=== PATIENT | male | born 1960 | race Caucasian/White ===

== ENCOUNTER → 2025-07-21 | Day surgery (SDC) | payer OTHER ==
--- NOTE | 2025-07-10 10:01 | RAD REPORT ---
EXAM: Chest Pa And Lat (2 Views) HISTORY: 65 years Male Pre-op pending knee meniscectomy COMPARISON: No prior exams FINDINGS: LUNGS/PLEURA: The lungs are clear. No pleural effusions or pneumothorax. No pulmonary edema. CARDIAC/MEDIASTINUM: The cardiac silhouette is within normal limits. UPPER ABDOMEN: No significant abnormality. BONES: No acute abnormality. LINES/TUBES/OTHER: N/A IMPRESSION: No evidence of acute cardiopulmonary disease.
[2025-07-10 10:14] LABS: Absolute Lymphocytes (CBC) 2.1 K/uL (0.7-4.9); Hematocrit 39.1 % (39.6-49.0); Hemoglobin 13.6 g/dL (13.6-17.9); MCH 30.3 pg (27.0-35.0); MCHC 34.6 g/dL (32.0-36.0); MCV 87.5 fL (80-100); MPV 9.9 fL (7.6-11.3); Nucleated RBC Absolute Count 0.0 (0-0); Nucleated Red Blood Cells % 0.2 % (0-0); RBC Red Blood Cell Count 4.47 M/uL (4.33-5.43); White Blood Count 6.10 thou/uL (4.3-10.9)
[2025-07-10 10:23] LABS: PT Prothrombin Time 12.6 SECONDS (10-13.0); PTT, Activated Partial Thromb 30.3 SECONDS (27.2-37.4); Protime INR 1.12
[2025-07-10 10:31] LABS: Anion Gap 8.1 mEq/L (5.0-15.0); BUN Blood Urea Nitrogen 17.0 mg/dL (7-18); Glucose Level 108.0 mg/dL (74-106); Potassium 4.1 mEq/L (3.5-5.1)
[~2025-07-21] MED LIST: FENTANYL CITR 100 MCG/2 ML ONE; LIDOCAINE 2% MPF 5 ML VIAL ONE; MIDAZOLAM HCL 2 MG/2 ML INJ ONE; ONDANSETRON 4 MG/2 ML VIAL ONE; Ringers Lactate 1,000 ML IV ONE
[2025-07-21] MEDS: CEFAZOLIN SODIUM 2 GM/VIAL ONE (10:06)
[2025-07-21] MEDS: BUPIVACAINE 0.25% PF 10 ML VIAL ONE (10:36)
--- NOTE | 2025-07-21 11:16 | P.BOP ---
Preoperative diagnosis: Left knee medial meniscus tear Postoperative diagnosis: Same, left knee lateral meniscus tear Primary procedure: Left knee arthroscopic partial medial and lateral meniscectomies Process Engineering Manager: NONE,NONE Estimated blood loss: 5 cc Specimen: None Findings: See dictation Anesthesia: General Complications: None Implants: None Fluids & blood products: Per anesthesia record Transferred to: Recovery Room Condition: Good
--- NOTE | 2025-07-21 11:24 | P.OP ---
Preoperative diagnosis: Left knee medial meniscus tear Postoperative diagnosis: Same, left knee lateral meniscus tear, left knee osteoarthritis Primary procedure: Left knee arthroscopic partial medial and lateral meniscectomies Anesthesia: General Estimated blood loss: 5 cc Specimen: None Findings: See dictation Operative Technique: Indication For Procedure: Slim is a 65-year-old male who presented to my clinic with signs, symptoms, and MRI findings consistent with a left knee medial meniscus tear and mild osteoarthritis. Patient failed conservative treatment measures including corticosteroid injection. Given his pain and mechanical symptoms we elected to proceed with left knee arthroscopic partial medial meniscectomy. I discussed with the patient risks and benefits associated with operative and nonoperative treatment including continued pain from his osteoarthritis. He expressed understanding and elected to proceed with operative treatment. Description Of Procedure: After informed consent was obtained, the patient was identified in the preoperative holding area. The left lower extremity was marked. Patient was brought to the operating room transferred to the operative table in the supine fashion and placed under general anesthesia. The left lower extremity was then prepped and draped in usual sterile fashion. A time-out was initiated. The correct patient and procedure were performed and identified. The patient did receive preoperative prophylactic antibiotics. The left lower extremity was exsanguinated using an Esmarch and the tourniquet was inflated to 300 mmHg. Standard anterior medial and anterior lateral portals were created. The arthroscope was brought in via the anterolateral portal and a diagnostic arthroscopy was performed. 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 The arthroscope was then brought on the both medial and lateral gutters and there were no loose bodies found within the gutters. The arthroscope was first brought into the medial compartment with the patient was noted to have a radial tear near the root of the posterior horn of the medial meniscus. A partial medial meniscectomy was performed using meniscal biters and arthroscopic prakash to smooth meniscal borders. There was some grade II chondromalacia changes noted of the medial tibial plateau and medial femoral condyle The arthroscope was then brought into the intercondylar notch where the patient was noted to have an intact ACL and PCL which were stable to probe. The arthroscope was and brought of the lateral compartment where the patient was noted to have fraying and degenerative type tear of the lateral meniscus body. A partial lateral meniscectomy was performed using an arthroscopic shaver to smooth meniscal borders. Patient had some grade III chondromalacia changes of the lateral tibial plateau. Arthroscopic instruments were then removed without complication. Wounds were then irrigated thoroughly with normal saline. Portals were approximated using a 3-0 Monocryl. Sterile dressings were applied. The patient was awakened and transferred to PACU in stable condition. Postoperative Plan: The patient will be weightbearing as tolerated on the left lower extremity. He will follow-up in clinic 1 week for wound check and d ressing change. We will follow the post meniscectomy protocol 2 weeks postoperatively. Complications: None Implants: None Fluids & blood products: Per anesthesia record Transferred to: Recovery Room Condition: Good
[2025-07-21 12:57] VITALS: BP 130/60; TEMP 97.5; O2SAT 100
== END ==
LOC: OR 08:55
PROVIDERS: ATTEND Orthopaedic Surgery Sports Medicine
PROC: 0SBD4ZZ Excision of Left Knee Joint, Percutaneous Endoscopic Approach (ICD-10-PCS; 2025-07-21)
PROC: 0SBD4ZZ Excision of Left Knee Joint, Percutaneous Endoscopic Approach (ICD-10-PCS; principal; 2025-07-21 09:15)
DX: S83.242A Other tear of medial meniscus, current injury, left knee, initial encounter (principal); M17.12 Unilateral primary osteoarthritis, left knee
CPT/HCPCS: 93005; 85025; 80048; 36415; 85610; 85730; 71046; 29880; J2704; J2003; J2250; J3010; J1100; J2405; J7120